=== PATIENT | female | born 1930 | race Caucasian/White ===

== ENCOUNTER 2018-02-02 11:39 | Emergency (ER) | payer MEDICARE, OTHER ==
[~2018-02-02] VITALS: Ht 152.4 cm; Wt 56.0 kg
[~2018-02-02 11:39] MED LIST: ACIPHEX20 MG OR; ACIPHEX20 MG PO; ALLOPURINOL100 MG PO; ALLOPURINOL300 MG OR; ASPIR-8181 MG OR; ATACAND16 MG OR; AUGMENTIN875TAB OR; BL ADULT ASA81 MG PO; CALCIUM500 M1 OR; CARB/LEVO1 TA4 PO; CELEBREX200 MG OR; CENESTIN0.625 MG OR; CLONAZEPAM0.5 MG PO; CLONIDINE0.1 MG PO; COUMADIN5 MG PO; CVS IRON45 MG OR; DIGOXIN0.125 MG PO; DONEPEZIL10 MG PO; DONEPEZIL5 MG PO; HYDROCO/APAP1 TA9 PO; ISOSORB MONO30 MG OR; LEVAQUIN500 MG PO; LEXAPRO10 MG PO; LOPRESS HCT1 TAB OR; LOSARTAN POT50 MG PO; METOPROL TAR100 MG PO; PERCOCET 5/325M1 TAB PO; PRUNELAX PO; SYNTHROID OR; SYNTHROID50 MCG PO; TRAMADOL HCL50 MG OR; VERAPAMIL120 M1 OR; VERAPAMIL240 M1 OR; [UNRECOGNIZED DRUG - OTHER] OR
[2018-02-02 11:43] VITALS: BP 172/88
== END 2018-02-02 13:21 | disposition left against medical advice (07) ==
LOC: ED 11:39 → LWOBS 13:21 → ED 13:21
DX: Z91.19 Patient's noncompliance with other medical treatment and regimen (principal)

== ENCOUNTER 2018-02-18 14:41 | Emergency (ER) | payer MEDICARE, OTHER ==
[~2018-02-18] VITALS: Ht 152.4 cm; Wt 45.0 kg
[2018-02-18] MEDS ORDERED: COUMADIN5 MG PO (14:53)
[2018-02-18 15:32] LABS: HEMATOCRIT 40.2 % (37.0-47.0); HEMOGLOBIN 12.8 g/dl (12.0-16.0); IMMATURE GRANULOCYTES 0.5 % (0.0-1.0); MEAN CELL VOLUME 91.4 fL CALC (80.0-100.0); MEAN CORPUSCULAR HGB 29.1 pG CALC (26.0-32.0); MEAN CORPUSCULAR HGB CONC 31.8 g/L CALC (32.0-36.0); NEUT# 3.98 thou/uL (2.00-7.15); RED BLOOD COUNT 4.4 mill/uL (4.20-5.60); RED CELL DISTRI WIDTH 14.7 % (11.5-15.5)
[2018-02-18 16:31] LABS: ANION GAP 16 (6-22 (CALC)); BUN 21 mg/dL (8-23); BUN/CREATININE RATIO 20 (12-20 (CALC)); CARBON DIOXIDE 26 mmol/l (22-30); CHLORIDE 105 mmol/l (95-108); CREATININE 1.1 mg/dL (0.5-1.0); GFR 47 ML/MIN (>=60 (CALC)); GFR FOR AFR.AMER. 57 ML/MIN (>=60 (CALC)); POTASSIUM 4.6 mmol/l (3.5-5.1); SODIUM 143 mmol/l (137-146)
[2018-02-18 16:58] VITALS: BP 167/85
== END 2018-02-18 17:01 | disposition home or self-care (01) ==
LOC: ED 14:41
PROVIDERS: Family Medicine
DX: I10 Essential (primary) hypertension (principal); E11.9 Type 2 diabetes mellitus without complications; I48.91 Unspecified atrial fibrillation; N39.0 Urinary tract infection, site not specified; F03.90 Unspecified dementia, unspecified severity, without behavioral disturbance, psychotic disturbance, mood disturbance, and anxiety; G25.81 Restless legs syndrome; Z86.73 Personal history of transient ischemic attack (TIA), and cerebral infarction without residual deficits; Z95.0 Presence of cardiac pacemaker

== ENCOUNTER 2018-02-21 12:55 | Emergency (ER) | payer MEDICARE, OTHER | END 2018-02-21 13:07 | disposition left against medical advice (07) | LOC: ED 12:55 → LWOBS 13:07 | DX: Z91.19 Patient's noncompliance with other medical treatment and regimen (principal) ==

== ENCOUNTER 2018-05-17 15:00 | Emergency (ER) | payer MEDICARE, OTHER ==
[~2018-05-17] VITALS: Ht 152.4 cm; Wt 60.0 kg
[2018-05-17 15:27] LABS: HEMATOCRIT 39.6 % (37.0-47.0); HEMOGLOBIN 12.9 g/dl (12.0-16.0); IMMATURE GRANULOCYTES 0.6 % (0.0-1.0); MEAN CELL VOLUME 91.5 fL CALC (80.0-100.0); MEAN CORPUSCULAR HGB 29.8 pG CALC (26.0-32.0); MEAN CORPUSCULAR HGB CONC 32.6 g/L CALC (32.0-36.0); NEUT# 5.99 thou/uL (2.00-7.15); RED BLOOD COUNT 4.33 mill/uL (4.20-5.60); RED CELL DISTRI WIDTH 15.2 % (11.5-15.5)
[2018-05-17 15:48] LABS: BILIRUBIN, TOTAL 1.2 mg/dL (0.0-1.4); CREATININE 1.1 mg/dL (0.5-1.0); POTASSIUM 4.7 mmol/l (3.5-5.1); TOTAL PROTEIN 7.7 g/dL (6.3-8.2)
[2018-05-17 18:48] LABS: URINE BILIRUBIN - DIPSTICK NEGATIVE (NEGATIVE); URINE BLOOD DIPSTICK NEGATIVE (NEGATIVE); URINE COLOR YELLOW; URINE GLUCOSE - DIPSTICK NEGATIVE (NEGATIVE); URINE KETONE NEGATIVE (NEGATIVE); URINE LEUK ESTERASE NEGATIVE (NEGATIVE); URINE NITRITE - DIPSTICK NEGATIVE (Negative); URINE PROTEIN - DIPSTICK NEGATIVE (NEG-TRACE); URINE UROBILINOGEN - DIPSTICK 0.2 E.U./dL (0.2)
[2018-05-17 18:53] LABS: URINE CLARITY CLEAR
[2018-05-17] MEDS ORDERED: PROTONIX40 MG PO (19:09)
[2018-05-17] MEDS ORDERED: ZOFRAN ODT4 MG PO (19:09)
[2018-05-17 19:12] VITALS: BP 144/65
== END 2018-05-17 19:20 | disposition home or self-care (01) ==
LOC: ED 15:00
PROVIDERS: Emergency Medicine
DX: R11.2 Nausea with vomiting, unspecified (principal); Z95.0 Presence of cardiac pacemaker

== ENCOUNTER → 2018-08-24 | Outpatient (REF) | payer MEDICARE, OTHER ==
[~2018-08-24] MED LIST changes: +PROTONIX40 MG PO; +ZOFRAN ODT4 MG PO
[2018-08-24 14:38] LABS: INTERNATIONAL NORMALIZED RATIO 2.4 RATIO (0.7-1.3); PROTHROMBIN TIME 24.7 SECONDS (9.0-12.5)
== END | disposition home or self-care (01) ==
LOC: LAB 13:47
PROVIDERS: ATTEND Internal Medicine
DX: Z51.81 Encounter for therapeutic drug level monitoring (principal); Z79.01 Long term (current) use of anticoagulants